=== PATIENT | male | born 1955 | race Caucasian/White ===

== ENCOUNTER 2016-08-12 14:34 | Emergency (ER) | payer MEDICARE ==
[~2016-08-12] VITALS: Ht 172.7 cm; Wt 85.3 kg
[2016-08-12 18:29] VITALS: BP 142/91
== END 2016-08-12 19:59 | disposition home or self-care (01) ==
LOC: ER 14:34
DX: K52.9 Noninfective gastroenteritis and colitis, unspecified (principal); E78.5 Hyperlipidemia, unspecified; F17.210 Nicotine dependence, cigarettes, uncomplicated; T47.6X5A Adverse effect of antidiarrheal drugs, initial encounter; Y92.9 Unspecified place or not applicable

== ENCOUNTER 2020-02-05 17:04 | Emergency (ER) | payer OTHER, MEDICAID ==
[~2020-02-05] VITALS: Ht 165.1 cm; Wt 81.6 kg
[2020-02-05 18:14] LABS: Basophils # (auto) 0 10 ^3/uL (0-0.2); Basophils % (auto) 0.2 % (0.0-2.0); Eosinophils # (auto) 0 10 ^3/uL (0-0.8); Eosinophils % (auto) 0.1 % (0.0-7.0); Hematocrit 44.4 % (41.0-53.0); Hemoglobin 14.6 g/dL (13.5-17.5); Lymphocytes # (auto) 1.1 10 ^3/uL (0.4-5.4); Lymphocytes % (auto) 6.7 % (10.0-50.0); Mean Corpuscular Hemoglobin 30.9 pg (28.0-32.0); Mean Corpuscular Volume 93.8 fL (80.0-100.0); Monocytes # (auto) 1.2 10 ^3/uL (0-1.3); Monocytes % (auto) 7.1 % (0.0-12.0); Neutrophils % (auto) 85.9 % (37.0-80.0); Nucleated Red Blood Cells % 0.3 %; Platelet Count (auto) 89 10^3/uL (140-450); Red Blood Cells 4.73 10^6/uL (4.5-5.90); Red Cell Distribution Width 13.9 % (11.8-14.3); White Blood Cell 16.3 10^3/uL (4.4-10.8)
[2020-02-05 18:35] LABS: Albumin 3.5 g/dL (3.4-5.0); Calcium 8.1 mg/dL (8.5-10.1); Magnesium 2.7 mg/dL (1.6-2.6); Potassium 4.7 mmol/L (3.5-5.1)
[2020-02-05 18:39] LABS: INR 2.05 (0.9-1.15); Lactic Acid w/Reflex 5.1 mmol/L (0.4-2.0); Partial Thromboplastin Time 28.5 sec (23.0-31.2)
[2020-02-05 18:44] LABS: BUN/Creatinine Ratio 29.6; Bilirubin, Total 6.2 mg/dL (0.2-1.0); Total Protein 6.5 g/dL (6.4-8.2)
[2020-02-05] MEDS ORDERED: PIPERACILLIN-TAZOB 3.375GM 100 ML IV ONE (19:45)
[2020-02-05] MEDS ORDERED: VANCOMYCIN 1GM/250ML 250 ML IV ONE (19:45)
[2020-02-05] MEDS ORDERED: ACETAMINOPHEN 325 MG TAB PO ONE (19:45)
[2020-02-05] MEDS ORDERED: SODIUM CHLORIDE 0.9% 2,450 ML IV ONE (19:45)
[2020-02-05] MEDS ORDERED: LORazepam 2MG/ML-1ML VIAL IV ONE (23:15)
[2020-02-06 00:15] LABS: Urine Bacteria FEW /hpf (None Seen); Urine Blood 2+ /uL (Negative); Urine Hyaline Cast FEW /lpf (0 - 2); Urine Mucus FEW (None Seen); Urine Specific Gravity 1.026 (1.001-1.035); Urine WBC 1 /hpf (0 - 3)
[2020-02-06 03:37] VITALS: BP 171/93
[2020-02-06] MEDS ORDERED: ETOMIDATE (2MG/ML) 20ML VIAL IV ONE ×2 (04:40→05:45)
[2020-02-06] MEDS ORDERED: SUCCINYLCHOLINE CHLORIDE 20 MG/ML 10ML VIAL IV ONE ×2 (04:40→05:45)
[2020-02-06] MEDS ORDERED: MIDAZOLAM DRIP 50 mg/50mL 50 ML IV ONE (04:44)
[2020-02-06 05:05] VITALS: BP 88/52
[2020-02-06] MEDS ORDERED: MIDAZOLAM DRIP 50 mg/50mL 50 ML IV SCH (05:45)
[2020-02-06] MEDS ORDERED: SODIUM CHLORIDE 0.9% 1,000 ML IV ONE (05:45)
== END 2020-02-06 03:56 | disposition short-term general hospital (02) ==
LOC: ER 17:04
DX: A41.9 Sepsis, unspecified organism (principal); I50.9 Heart failure, unspecified; R65.20 Severe sepsis without septic shock; I21.4 Non-ST elevation (NSTEMI) myocardial infarction; R79.89 Other specified abnormal findings of blood chemistry; F03.91 Unspecified dementia, unspecified severity, with behavioral disturbance; F09 Unspecified mental disorder due to known physiological condition; N18.9 Chronic kidney disease, unspecified; R79.1 Abnormal coagulation profile; Z20.828 Contact with and (suspected) exposure to other viral communicable diseases; F20.9 Schizophrenia, unspecified; F41.9 Anxiety disorder, unspecified; I71.4 Abdominal aortic aneurysm, without rupture; F17.210 Nicotine dependence, cigarettes, uncomplicated
CPT/HCPCS: 31500; 36415; 36600; 70450; 71045; 71250; 74176; 76705; 80053; 81001; 82140; 82805; 83605; 83735; 83880; 84484; 85025; 85379; 85610; 85730; 87040; 87086; 87426; 93005; 94660; 96365; 96366; 96368; 96375; 99291; C9803; J0330; J2060; J2250; J2543; J3370; J7030; J7040; U0003; 94002